=== PATIENT | female | born 2000 | race Caucasian/White ===

== ENCOUNTER → 2020-04-17 | Outpatient (CLI) | payer OTHER ==
--- NOTE | 2020-04-17 14:05 | ECHOS ---
STRESS ECHOCARDIOGRAM LUMASON: N/A Vial INDICATIONS: Chest pain MEDICATIONS: BASELINE HEART RATE: 90 BASELINE BLOOD PRESSURE: 119/79 MAXIMUM HEART RATE: 184 MAXIMUM BLOOD PRESSURE: 154/67 85% MPHR: 92 100% MPHR: 200 METS: 11.9 MAXIMUM STAGE REACHED: TOTAL EXERCISE TIME: 10 minutes 17 seconds CLINICAL INFORMATION: Baseline rhythm is sinus mechanism, rate of 90, normal intervals. Baseline blood pressure 119/79 mmHg. Patient exercised on Thaddeus protocol for 10 minutes 17 seconds reaching peak rate of 184 beats per minute which is equal to 92% of maximum predicted heart rate. Peak blood pressure 154/67 mmHg. Test was terminated secondary to fatigue. There was no chest pain. Electrocardiograph monitoring revealed no evidence of diagnostic ischemic ST deviation. Baseline echocardiogram revealed normal wall motion. At peak exercise, there was normal wall motion augmentation with no hypokinesis or dyskinesis. CONCLUSION: 1. Average exercise tolerance with normal electrocardiograph response to exercise. 2. Normal stress echocardiogram with no evidence of stress-induced ischemia. MMODL / IJN: [id number] /
== END | disposition home or self-care (01) ==
LOC: RADNMMAIN 09:14
PROVIDERS: ATTEND Internal Medicine
DX: R07.89 Other chest pain (principal)
CPT/HCPCS: 93351